=== PATIENT | male | born 1940 | race Caucasian/White ===

== ENCOUNTER 2023-01-15 13:21 | Emergency (ER) | payer OTHER ==
[2023-01-15 13:41] VITALS: RESP 16; TEMP 98.5; BMI 25.4
[2023-01-15 15:43] LABS: BASO % 0.8 % (0-2.0); EOS % 1.4 % (0-4.5); HEMATOCRIT 45.5 % (35.4-49); HEMOGLOBIN 15.5 GM/dL (11.7-16.9); LYMPH % 29.5 % (8-40); MCH 31.3 pg (25.7-33.7); MCHC 34.1 g/dl (32.0-35.9); MEAN CELL VOLUME 91.9 fl (80-96); MEAN PLT VOLUME 8.9 fl (7.5-11.1); MONO % 8.7 % (3.8-10.2); NEUT % 59.6 % (42.8-82.8); PLATELET COUNT 181 10^3/uL (134-434); RBC 4.95 M/mm3 (4.00-5.60); RDW 13.4 % (11.9-15.9); WHITE BLOOD COUNT 6.3 K/mm3 (4.0-10.0)
[2023-01-15 16:31] LABS: POTASSIUM 4.2 mmol/L (3.5-5.1)
[2023-01-15 16:32] LABS: ALBUMIN 3.7 g/dl (3.4-5.0); CALCIUM 8.8 mg/dL (8.5-10.1); MAGNESIUM 1.8 mg/dL (1.8-2.4)
[2023-01-15 16:34] LABS: BLOOD UREA NITROGEN 13.4 mg/dL (7-18)
[2023-01-15 16:36] LABS: CREATININE 0.8 mg/dL (0.55-1.3)
[2023-01-15 16:38] LABS: BILIRUBIN,TOTAL 0.4 mg/dL (0.2-1); TOT PROT 7.8 g/dl (6.4-8.2)
[2023-01-15 17:23] LABS: EPI CELLS 6 /uL (0-25.1); HYALINE CASTS 0 /uL (0-3.1); URINE APPEARANCE CLEAR; URINE BACTERIA 4 /uL (0-1359); URINE BILIRUBIN NEGATIVE (NEGATIVE); URINE COLOR YELLOW; URINE GLUCOSE (UA) NEGATIVE (NEGATIVE); URINE KETONE NEGATIVE (NEGATIVE); URINE LEUK ESTERASE 1+ (NEGATIVE); URINE NITRITE NEGATIVE (NEGATIVE); URINE PROTEIN NEGATIVE (NEGATIVE); URINE RBC 20 /uL (0-23.9); URINE UROBILINOGEN 0.2 mg/dL (0.2-1.0); URINE WBC 77 /uL (0-25.8)
[2023-01-15] MEDS ORDERED: CEPHALEXIN MONOHYDRATE 500 MG CAPSULE (UD) PO ONE (17:42)
[2023-01-15] MEDS ORDERED: CEPHALEXIN MONOHYDRATE 500 MG CAPSULE (UD) ONE (17:51)
[2023-01-15 19:11] VITALS: BP 194/89; PULSE 50
== END 2023-01-15 19:30 | disposition home or self-care (01) ==
LOC: EDBD 13:21 → JER 13:21
DX: R53.1 Weakness (principal); R53.83 Other fatigue; Z20.822 Contact with and (suspected) exposure to COVID-19
CPT/HCPCS: 0241U-QW; 36415; 70450-TC; 71045-TC-FY; 71250-TC; 80053; 81003; 83690; 83735; 84443; 84484; 85025; 87086; 93005; 93010; 99285-25